=== PATIENT | male | born 2000 | race Caucasian/White ===

== ENCOUNTER 2019-02-08 14:28 | Emergency (ER) | payer OTHER ==
[~2019-02-08] VITALS: Wt 110.0 kg
[2019-02-08] MEDS ORDERED: ONDANSETRON (ODT) 4 MG TAB ODT STA (15:17)
[2019-02-08] MEDS ORDERED: ACETAMINOPHEN 325 MG TAB PO ONE (15:30)
[2019-02-08] MEDS ORDERED: ONDA4TAB14 PO (17:18)
[2019-02-08] MEDS ORDERED: MAG-19 PO (17:18)
[2019-02-08] MEDS ORDERED: ACET-141 PO (17:18)
--- NOTE | 2019-02-08 17:19 | ERD ---
ER Documentation Chief Complaint Chief Complaint VOMITING X 1 WEEK ROS All systems reviewed and are negative except as per history of present illness. Medications Home Meds Active Scripts Acetaminophen* (Acetaminophen*) 500 MG Extra Strength Tablet, 500 MG PO Q4H PRN for PAIN AND OR ELEVATED TEMP, #30 TAB Prov:NELSON DAVIS DO 02/08/19 Magaldrate/Simethicone* (Mylanta*) 355 Ml Susp, 30 ML PO Q6H PRN for GASTROINTESTINAL UPSET, #1 BOTTLE Prov:NELSON DAVIS DO 02/08/19 Ondansetron (Ondansetron Odt) 4 Mg Tab.rapdis, 4 MG PO Q6H PRN for NAUSEA AND/OR VOMITING, #15 TAB Prov:NELSON DAVIS DO 02/08/19 Allergies Allergies: Coded Allergies: No Known Allergy (Unverified , 02/08/19) PMhx/Soc Medical and Surgical Hx: pt denies Medical Hx, pt denies Surgical Hx Hx Alcohol Use: No Hx Tobacco Use: No Physical Exam Vitals Vital Signs Date Temp Pulse Resp B/P (MAP) Pulse Ox O2 O2 Flow FiO2 Time Delivery Rate 02/08/19 98.2 82 18 129/87 99 14:31 (101) Physical Exam Const: No acute distress Head: Atraumatic Eyes: Normal Conjunctiva ENT: Normal External Ears, Nose and Mouth. Neck: Full range of motion. No meningismus. Resp: Clear to auscultation bilaterally Cardio: Regular rate and rhythm, no murmurs Abd: Soft, non tender, non distended. Normal bowel sounds Skin: No petechiae or rashes Back: No midline or flank tenderness Ext: No cyanosis, or edema Neur: Awake and alert Psych: Normal Mood and Affect Result Diagram: 02/08/19 1612 02/08/19 1612 Results 24 hrs Laboratory Tests Test 02/08/19 16:12 White Blood Count 11.9 10^3/ul Red Blood Count 4.96 10^6/ul Hemoglobin 14.8 g/dl Hematocrit 43.1 % Mean Corpuscular Volume 86.9 fl Mean Corpuscular Hemoglobin 29.8 pg Mean Corpuscular Hemoglobin Concent 34.3 g/dl Red Cell Distribution Width 12.6 % Platelet Count 360 10^3/UL Mean Platelet Volume 9.9 fl Immature Granulocytes % 0.300 % Neutrophils % 77.1 % Lymphocytes % 16.6 % Monocytes % 5.2 % Eosinophils % 0.3 % Basophils % 0.5 % Nucleated Red Blood Cells % 0.0 /100WBC Immature Granulocytes # 0.040 10^3/ul Neutrophils # 9.2 10^3/ul Lymphocytes # 2.0 10^3/ul Monocytes # 0.6 10^3/ul Eosinophils # 0.0 10^3/ul Basophils # 0.1 10^3/ul Nucleated Red Blood Cells # 0.0 10^3/ul Sodium Level 143 mmol/L Potassium Level 4.4 mmol/L Chloride Level 105 mmol/L Carbon Dioxide Level 28 mmol/L Anion Gap 10 Blood Urea Nitrogen 9 mg/dl Creatinine 0.91 mg/dl Est Glomerular Filtrat Rate mL/min > 60 mL/min Glucose Level 97 mg/dl Calcium Level 10.1 mg/dl Total Bilirubin 0.6 mg/dl Direct Bilirubin 0.00 mg/dl Indirect Bilirubin 0.6 mg/dl Aspartate Amino Transf (AST/SGOT) 57 IU/L Alanine Aminotransferase (ALT/SGPT) 46 IU/L Alkaline Phosphatase 97 IU/L Total Protein 8.2 g/dl Albumin 4.7 g/dl Globulin 3.50 g/dl Albumin/Globulin Ratio 1.34 Lipase 70 U/L Current Medications Medications Dose Sig/Kina Start Time Status Last (Trade) Ordered Route PRN Stop Time Admin Dose Reason Admin Ondansetron 4 mg ONCE STAT 02/08/19 DC 02/08/19 HCl (Zofran ODT 15:17 15:29 Odt) 02/08/19 15:20 650 mg ONCE ONCE 02/08/19 DC 02/08/19 Acetaminophen PO 15:30 15:28 (Tylenol 02/08/19 15:31 Tab) Departure Diagnosis: Primary Impression: Vomiting Additional Impression: Abdominal pain Condition: Fair Patient Instructions: Abdominal Pain, Vomiting (5Y-Adult) Referrals: [facility] YOU HAVE RECEIVED A MEDICAL SCREENING EXAM AND THE RESULTS INDICATE THAT YOU DO NOT HAVE A CONDITION THAT REQUIRES URGENT TREATMENT IN THE EMERGENCY DEPARTMENT. FURTHER EVALUATION AND TREATMENT OF YOUR CONDITION CAN WAIT UNTIL YOU ARE SEEN IN YOUR DOCTORS OFFICE WITHIN THE NEXT 1-2 DAYS. IT IS YOUR RESPONSIBILITY TO MAKE AN APPOINTMENT FOR FOLOW-UP CARE. IF YOU HAVE A PRIMARY DOCTOR --you should call your primary doctor and schedule an appointment IF YOU DO NOT HAVE A PRIMARY DOCTOR YOU CAN CALL OUR PHYSICIAN REFERRAL HOTLINE AT IF YOU CAN NOT AFFORD TO SEE A PHYSICIAN YOU CAN CHOSE FROM THE FOLLOWING [facility] [address] [facility] [address] [facility] [place] [address] [facility] [address] [facility] [facility] [place] [address] [facility] [facility]. [address] Additional Instructions: Call your primary care doctor TOMORROW for an appointment during the next 1-2 days.See the doctor sooner or return here if your condition worsens before your appointment time. NELSON DAVIS DO February 08, 2019 17:19
[2019-02-08 17:26] VITALS: BP 142/69; PULSE 75; RESP 18
== END 2019-02-08 17:29 | disposition home or self-care (01) ==
LOC: FTE 14:28
DX: R11.10 Vomiting, unspecified (principal); R10.9 Unspecified abdominal pain
CPT/HCPCS: 76705; 80053; 83690; 85025; Z7610